=== PATIENT | female | born 1995 | race African-American/Black ===

== ENCOUNTER 2017-05-29 12:05 | Emergency (ER) | payer MEDICAID, OTHER ==
[~2017-05-29] VITALS: Ht 167.6 cm; Wt 60.0 kg
[2017-05-29 12:38] VITALS: BP 132/88
== END 2017-05-29 13:58 | disposition home or self-care (01) ==
LOC: ER 13:22
DX: H10.9 Unspecified conjunctivitis (principal); H11.33 Conjunctival hemorrhage, bilateral; F12.10 Cannabis abuse, uncomplicated
CPT/HCPCS: 99283

== ENCOUNTER 2018-04-26 15:19 | Emergency (ER) | payer MEDICAID, OTHER ==
[~2018-04-26] VITALS: Ht 167.6 cm; Wt 57.0 kg
[2018-04-26] MEDS ORDERED: VISCOUS LIDOCAINE 2% 15 ML UDC MM ONE (16:45)
[2018-04-26 19:19] VITALS: BP 125/78
== END 2018-04-26 19:21 | disposition home or self-care (01) ==
LOC: ER 15:19
DX: J02.9 Acute pharyngitis, unspecified (principal); F17.200 Nicotine dependence, unspecified, uncomplicated; F12.10 Cannabis abuse, uncomplicated
CPT/HCPCS: 87070; 87430; 99283